=== PATIENT | female | born 1965 | race Caucasian/White ===

== ENCOUNTER 2018-09-07 08:50 | Emergency (ER) | payer MEDICAID ==
[~2018-09-07] VITALS: Wt 73.7 kg
[~2018-09-07 08:50] MED LIST: IBUP-1561 PO
[2018-09-07 08:52] VITALS: BP 125/84; PULSE 69; RESP 17
[2018-09-07] MEDS ORDERED: METHOCARBAMOL 750 MG TAB PO ONE (10:00)
[2018-09-07] MEDS ORDERED: METH750T93 PO (11:06)
[2018-09-07] MEDS ORDERED: IBUP-1542 PO (11:06)
--- NOTE | 2018-09-07 18:26 | ERD ---
ER Documentation Chief Complaint Chief Complaint NUMBNESS ON LEFT ARM, ONSET 3 DAYS, NO WEAKNESS, NO FACIAL DROOP HPI 53-year-old female presents for numbness of the left arm times 3 days. She also has left side low back pain and left hip pain. States that the pain starts at the left shoulder and radiates into the left arm. The pain is noted to be 10 out of 10. No prior similar symptoms. No recent sickness, no recent travel. She denies any confusion or muscle weakness. No other complaints. ROS All systems reviewed and are negative except as per history of present illness. Medications Home Meds Active Scripts Ibuprofen* (Motrin*) 600 Mg Tab, 600 MG PO TID PRN for PAIN, #30 TAB Prov:CAMARAYAIR DO 09/07/18 Methocarbamol* (Robaxin*) 750 Mg Tablet, 750 MG PO TID for muscle pain, #30 TAB Prov:YAIR CAMARA 09/07/18 Ibuprofen* (Motrin*) 400 Mg Tab, 400 MG PO Q6H PRN for PAIN AND OR ELEVATED TEMP, #30 Prov:MARIO MAJOR NP 02/10/15 Allergies Allergies: Coded Allergies: No Known Allergy (Unverified , 02/09/15) PMhx/Soc Medical and Surgical Hx: pt denies Medical Hx, pt denies Surgical Hx Hx Alcohol Use: No Hx Substance Use: No Hx Tobacco Use: No Smoking Status: Never smoker Physical Exam Vitals Vital Signs Date Temp Pulse Resp B/P (MAP) Pulse Ox O2 O2 Flow FiO2 Time Delivery Rate 09/07/18 98.0 69 17 125/84 98 08:52 (98) Physical Exam Const: No acute distress Head: Atraumatic Eyes: Normal Conjunctiva ENT: Normal External Ears, Nose and Mouth. Neck: Full range of motion. No meningismus. Resp: Clear to auscultation bilaterally Cardio: Regular rate and rhythm, no murmurs, bilateral radial and dorsalis pedis pulses intact Abd: Soft, non tender, non distended. Normal bowel sounds Skin: No petechiae or rashes Back: Left paravertebral muscle lumbar spine tenderness palpation Ext: pain to palpation of the left hip, left shoulder muscle tightness noted with some pain to palpation. 5, strength bilateral upper and lower extremities Neur: Awake and alert, bilateral upper extremity sensation intact Psych: Normal Mood and Affect Results 24 hrs Laboratory Tests Test 1/25/19 10:03 White Blood Count 4.6 10^3/ul Red Blood Count 4.61 10^6/ul Hemoglobin 13.7 g/dl Hematocrit 40.6 % Mean Corpuscular Volume 88.1 fl Mean Corpuscular Hemoglobin 29.7 pg Mean Corpuscular Hemoglobin Concent 33.7 g/dl Red Cell Distribution Width 12.3 % Platelet Count 153 10^3/UL Mean Platelet Volume 11.3 fl Immature Granulocytes % 0.200 % Neutrophils % 41.8 % Lymphocytes % 49.0 % Monocytes % 7.2 % Eosinophils % 1.1 % Basophils % 0.7 % Nucleated Red Blood Cells % 0.0 /100WBC Immature Granulocytes # 0.010 10^3/ul Neutrophils # 1.9 10^3/ul Lymphocytes # 2.2 10^3/ul Monocytes # 0.3 10^3/ul Eosinophils # 0.1 10^3/ul Basophils # 0.0 10^3/ul Nucleated Red Blood Cells # 0.0 10^3/ul Sodium Level 144 mmol/L Potassium Level 4.1 mmol/L Chloride Level 102 mmol/L Carbon Dioxide Level 30 mmol/L Anion Gap 12 Blood Urea Nitrogen 13 mg/dl Creatinine 0.45 mg/dl Est Glomerular Filtrat Rate mL/min > 60 mL/min Glucose Level 106 mg/dl Calcium Level 9.9 mg/dl Total Bilirubin 0.4 mg/dl Direct Bilirubin 0.00 mg/dl Indirect Bilirubin 0.4 mg/dl Aspartate Amino Transf (AST/SGOT) 29 IU/L Alanine Aminotransferase (ALT/SGPT) 40 IU/L Alkaline Phosphatase 74 IU/L Total Protein 7.8 g/dl Albumin 4.5 g/dl Globulin 3.30 g/dl Albumin/Globulin Ratio 1.36 Current Medications Medications Dose Sig/Macarena Start Time Status Last (Trade) Ordered Route PRN Stop Time Admin Dose Reason Admin 750 mg ONCE ONCE 09/07/18 DC 09/07/18 Methocarbamol PO 10:00 10:08 (Robaxin) 09/07/18 10:04 Procedures/MDM Medical Decision Making: Differential diagnosis includes but not limited to muscle strain, ligamentous sprain, rupture, dislocation Patient appeared well on physical exam. There is some tenderness palpation over the left shoulder, left arm, left hip and left lower extremity Patient was neurovascular intact however. CBC showed mildly low WBC, no anemia noted. CMP showed normal lecture lites, normal kidney and liver function. Patient advised if she would need to repeat her CBC with primary care physician given the low WBC. ED course: Patient was given Robaxin. Symptoms improved with treatment. Prescription(s): Patient given prescription for Robaxin and Motrin. There was no electrolyte imbalance to explain patient's symptoms. Patient likely has muscle strains. She is advised to follow with a primary care physician for possible referral to physical therapy if her pain continues. Advised to use warm compresses. Patient advised to follow up with PCP in 1-2 days. Patient advised to return to ED for new or worsening symptoms. Patient stable on discharge from the ED. Disclaimer: Inadvertent spelling and grammatical errors are likely due to EHR/dictation software use and do not reflect on the overall quality of patient care. Also, please note that the electronic time recorded on this note does not necessarily reflect the actual time of the patient encounter. Departure Diagnosis: Primary Impression: Muscle pain Additional Impression: Numbness Condition: Fair Patient Instructions: Paraesthesias Referrals: [facility] YOU HAVE RECEIVED A MEDICAL SCREENING EXAM AND THE RESULTS INDICATE THAT YOU DO NOT HAVE A CONDITION THAT REQUIRES URGENT TREATMENT IN THE EMERGENCY DEPARTMENT. FURTHER EVALUATION AND TREATMENT OF YOUR CONDITION CAN WAIT UNTIL YOU ARE SEEN IN YOUR DOCTORS OFFICE WITHIN THE NEXT 1-2 DAYS. IT IS YOUR RESPONSIBILITY TO MAKE AN APPOINTMENT FOR FOLOW-UP CARE. IF YOU HAVE A PRIMARY DOCTOR --you should call your primary doctor and schedule an appointment IF YOU DO NOT HAVE A PRIMARY DOCTOR YOU CAN CALL OUR PHYSICIAN REFERRAL HOTLINE AT IF YOU CAN NOT AFFORD TO SEE A PHYSICIAN YOU CAN CHOSE FROM THE FOLLOWING [facility] [address] [facility] [address] [facility] [address] [facility] [address] [facility] [address] [facility] [facility]. [address] Additional Instructions: Llame al doctor MAANA y nancy toi MAGNOLIA PARA DENTRO DE 1-2 [place].Dgale a la secretaria que nosotros le instruimos hacer esta magnolia.Avise o llame si rodriguez condicin se empeora antes de la magnolia. Regresa aqui si peor o no mejor. YAIR CAMARA DO Sep 07, 2018 18:26
== END 2018-09-07 11:16 | disposition home or self-care (01) ==
LOC: FTE 08:50
DX: M79.10 Myalgia, unspecified site (principal)
CPT/HCPCS: 80053; 85025; Z7502; Z7610; 99283